=== PATIENT | male | born 1950 | race Caucasian/White ===

== ENCOUNTER 2025-09-25 08:29 | Inpatient (IN) | payer MEDICARE, BC, SELFPAY ==
[2025-09-25] VITALS (8 sets, daily range): BP systolic 108–138; BP diastolic 43–68; PULSE 74–104; RESP 16–97; TEMP 37.2–39.2; O2SAT 93–99; BMI 23.7
--- NOTE | 2025-09-25 08:50 | EKG_ITS ---
[facility] Test Date: 2025-09-25 Pat Name: NATASHA GONZALES Department: Room: - Gender: Male Supplier Diversity Director: : 1950 Requested By: Caleb Quinonez Order Number: [id number] Reading MD: Caleb Quinonez Measurements Intervals [place] Rate: 79 P: 60 NV: 157 QRS: 52 QRSD: 92 T: 72 QT: 376 QTc: 431 Interpretive Statements SINUS RHYTHM NONSPECIFIC T-WAVE ABNORMALITY No previous ECG available for comparison /store/S0/[id number].pdf
--- NOTE | 2025-09-25 08:52 | PD.EDMALE ---
ED Male Genitalurinary RME/HPI General Chief complaint: Urogenital-Male Stated complaint: BLOOD IN URINE Time Seen by Provider: 09/25/25 08:44 Arrival date/time: 09/25/25 08:29 Limitations: no limitations RME / HPI RME / HPI Narrative: DR. REYMUNDO GONSALES ED EVALUATION: 75-year-old male with history of hypercholesterolemia, insulin-dependent diabetes, hypertension, CAD and BPH who presents to the emergency department complaining of 2 days of nausea, vomiting, diarrhea as well as chills and shakes at home. Patient states he had left flank pain 2 days ago but that resolved. Patient states that he became so weak at home that when he used the commode last he could not hold himself up and fell to the side. No injuries. Patient also states that he fell out of bed at 1 point and was unable to stand up. No chest pain but patient states that he has had a off/on cough that is nonproductive. Patient states his told him that he had blood in his urine but he did not see it. Patient arrives febrile. Related Data Home Medications ?Medication ?Instructions ?Recorded ?Confirmed aspirin 81 mg tablet,delayed 81 mg PO QDAY 04/30/23 09/25/25 release (Adult Aspirin Regimen) atorvastatin 20 mg tablet 20 mg PO QDAY 04/30/23 09/25/25 finasteride 5 mg tablet 5 mg PO QDAY 04/30/23 09/25/25 insulin glargine 100 unit/mL (3 20 unit subcut BID 04/30/23 09/25/25 mL) subcutaneous pen (Lantus Solostar U-100 Insulin) lisinopril 2.5 mg tablet 10 mg PO QDAY 04/30/23 09/25/25 metformin 1,000 mg tablet 1,000 mg PO BID 04/30/23 09/25/25 nitroglycerin 0.4 mg sublingual 0.4 mg sublingual Q5M PRN chest 04/30/23 09/25/25 tablet pain tamsulosin 0.4 mg capsule 0.4 mg PO QDAY 04/30/23 09/25/25 carvedilol 12.5 mg tablet 12.5 mg PO BID 09/25/25 09/25/25 insulin lispro 100 unit/mL 3 unit subcut TID 09/25/25 09/25/25 subcutaneous pen (Humalog KwikPen (U-100) Insulin) pregabalin 50 mg capsule (Lyrica) 50 mg PO TID 09/25/25 09/25/25 Allergies Allergy/AdvReac Type Severity Reaction Status Date / Time codeine Allergy Verified 09/25/25 08:37 Review of Systems Review of Systems Systems Reviewed: All systems reviewed, normal except as documented ED Exam General Limitations: Present no limitations General appearance: Present alert, in no apparent distress and other (appears fatigued) Head Head exam: Present atraumatic, normocephalic and normal inspection Eye Eye exam: Present normal appearance, PERRL and EOMI ENT ENT exam: Present normal exam, normal oropharynx and mucous membranes moist Neck Neck exam: Present normal inspection, full ROM and trachea midline Chest Chest inspection: Present normal inspection and symmetric chest wall rise Respiratory Respiratory exam: Present normal lung sounds bilaterally Cardiovascular Cardiovascular exam: Present regular rate, normal rhythm and normal heart sounds Abdominal Exam Abdominal exam: Present soft and normal bowel sounds; Absent tenderness, guarding or rebound Extremities Exam Extremities exam: Present normal inspection and full ROM Back Exam Back exam: Present normal inspection and full ROM; Absent CVA tenderness (R) or CVA tenderness (L) Neurological Exam Neurological exam: Present alert, oriented X3 and CN II-XII intact Psychiatric Psychiatric exam: Present normal affect and normal mood Skin Skin exam: Present dry, intact, normal color and other (hot to touch) Course Quality Measures none Orders Category Date Time Status Bedside COVID-19 Antigen Test NOW Care 09/25/25 08:53 Active Bedside Influenza A&B Antigen Test NOW Care 09/25/25 08:53 Completed Hospice Executive Director STAT Care 09/25/25 08:50 Active Continuous Pulse Oximetry STAT Care 09/25/25 08:50 Completed EKG (ED ONLY) *Do not use* NOW Care 09/25/25 08:50 Completed Insert IV NOW Care 09/25/25 08:50 Active NPO STAT Care 09/25/25 08:50 Active Strict Intake and Output Routine Care 09/25/25 08:[address] abdomen pelvis wo con Stat Exams 09/25/25 09:09 Completed EKG (ED Only) Stat Exams 09/25/25 08:50 Draft XR chest 1V SEPSIS PROTOCOL Stat Exams 09/25/25 08:51 Completed B-Type Natriuretic Peptide Stat Lab 09/25/25 08:55 Completed Blood Culture (Lab) Stat Lab 09/25/25 09:06 Received CBC Stat Lab 09/25/25 08:55 Completed Comprehensive Metabolic Panel Stat Lab 09/25/25 08:55 Completed Free T4 (Free Thyroxine) Stat Lab 09/25/25 11:12 Ordered Ketone [Beta Hydroxybutyrate] Stat Lab 09/25/25 09:39 Completed LDH (Lactate Dehydrogenase) Stat Lab 09/25/25 08:55 Completed Lactate (Lactic Acid) Stat Lab 09/25/25 08:55 Results Lipase Stat Lab 09/25/25 08:55 Completed Magnesium Stat Lab 09/25/25 08:55 Completed Partial Thromboplastin Time Stat Lab 09/25/25 08:55 Completed Phosphorous Stat Lab 09/25/25 08:55 Completed Procalcitonin Stat Lab 09/25/25 08:55 Completed Prothrombin Time with INR Stat Lab 09/25/25 08:55 Completed TSH [Thyroid Stimulating Hormone] Stat Lab 09/25/25 11:12 Ordered Troponin I Stat Lab 09/25/25 08:55 Completed Urinalysis, C/S if Indicated Stat Lab 09/25/25 09:00 Completed Urine Culture Stat Lab 09/25/25 09:00 Received VBG [Venous Blood Gas] Stat Lab 09/25/25 09:06 Completed Acetaminophen Ivpb [Ofirmev Inj] Med 09/25/25 08:52 Discontinued 1,000 mg in 100 ml IV NOW Doxycycline Inj [Vibramycin Inj] 100 mg Med 09/25/25 08:52 Discontinued Sodium Chloride 0.9% (Pop) [NS 0.9% mini bag] 100 ml IV X1 Insulin Regular Med 09/25/25 11:12 Discontinued 6 unit IV X1 ONE Magnesium Sulfate 2 GM Ivpb [Magnesium Sulfate Ivpb] Med 09/25/25 11:11 Active 2 gm in 50 ml IV X1 Piper/Tazo 3.375 gm Premix [Zosyn] Med 09/25/25 08:50 Discontinued 3.375 gm in 50 ml IV X1 Sodium Chloride 0.9% 1000 ml [Ns] 2,466 ml Med 09/25/25 08:50 Discontinued IV 2,466 mls/hr Oxygen Delivery NOW RT 09/25/25 08:50 Active Vital Signs Vital signs: Vital Signs Temperature 102.5 F H 09/25/25 08:35 Pulse Rate 90 09/25/25 08:35 Respiratory Rate 18 09/25/25 08:35 Blood Pressure 138/68 H 09/25/25 08:35 Pulse Oximetry (%) 97 09/25/25 08:35 Oxygen Delivery Method Room Air 09/25/25 08:35 Urogenital - Male MDM Narrative MDM Narrative:: I, Macy Mcpherson, am scribing for and in the presence of Dr. Isabel. 75-year-old male presenting with fever, gastrointestinal symptoms, weakness, and reported hematuria. Given febrile state and systemic symptoms, workup initiated to evaluate for sepsis, with concern for urinary source, pyelonephritis, pneumonia, viral illness, or other infectious etiology. Plan is to rule out pyelo-/renal colic/pneumonia/UTI/sepsis of unknown source/influenza/COVID/other. EKG at 9:40 AM normal sinus rhythm at 79 with normal axis, no ectopy no signs of acute ischemia. Patient data External records reviewed:: [facility] previous records Clinical information provided by:: patient and spouse Social determinants that could affect healthcare access:: none Patient has the following chronic illnesses:: hypercholesterolemia, insulin-dependent diabetes, hypertension, CAD and BPH How is presenting disease/condition affected by chronic disease/condition?: exacerbated by Evaluation data The following diagnostics were reviewed and interpreted by me:: lab results, radiology exam(s) and EKG tracing(s) (EKG at 9:40 AM normal sinus rhythm at 79 with normal axis, no ectopy no signs of acute ischemia.) Lab and/or radiology exams considered but not ordered:: none Interpretation Summary: See [facility] narrative above. RADIOLOGY Procedure(s): CT abdomen pelvis wo [facility] Accession Number(s): [id number] cc: Tim Dee MD; Caleb Isabel MD~ Examination: CT abdomen and pelvis without contrast. Coronal 3-D reconstructions. Sagittal 2-D reconstructions. Date and time of exam: September 25, 2025, 09 hours INDICATIONS: Onset nausea vomiting hematuria beginning last night CTDI: vol (mGy): 8.03 DLP: (mGycm): 495 Technique: Axial images of the abdomen have been obtained, 3 mm slice thickness Intravenous contrast material has not been administered. Low dose protocols were performed. One or more of the following dose reduction techniques were used; automated exposure control, adjustment of the mA and/or KV according to patient size, use of iterative reconstruction technique. Findings: No visualized liver or splenic lesion Small gallstones Gallbladder wall does not appear thickened Pancreas is not enlarged No adrenal mass. Left perinephric stranding mild left hydronephrosis and left hydroureter, no ureteral calculi Aortic calcification Heavy calcification origin left renal artery Normal appendix No bowel obstruction 4 cm posterior right bladder diverticulum No bladder mass or bladder calculi Transverse prostate dimension 5 cm Significant osteopenia Mild chronic osteoporotic compression L1 IMPRESSION: Left perinephric stranding mild left hydronephrosis left hydroureter, no ureteral calculi, consider left pyelonephritis versus recently passed ureteral calculus, clinical correlation advised Normal appendix Benign bladder diverticulum Dictated By: Tim Dee MD Procedure(s): XR chest 1V SEPSIS PROTOCOL Accession Number(s): [id number] cc: Tim Dee MD; Caleb Isabel MD~ EXAMINATION: AP chest single view TECHNIQUE: AP portable upright chest single view Date and time: September 25, 2025, 0949 hours INDICATIONS: Sepsis alert today. FINDINGS: No significant cardiac enlargement No lobar pneumonia Prominent osteopenia Trachea is deviated to the right which may relate to large left thyroid lobe IMPRESSION: No lobar pneumonia Consider thyroid sonography follow-up to confirm marked left thyromegaly Dictated By: Tim Dee MD Medications / Prescriptions Medications or Prescriptions considered but not ordered:: none Medication administrations:: Medication Administration History Magnesium Sulfate (Magnesium Sulfate Ivpb) 2 gm in 50 mls @ 25 mls/hr IV X1 ONE Stop: 09/25/25 13:10 Last Admin: 09/25/25 11:26 Dose: 25 mls/hr Documented By: MARKUS Discontinued Medications Sodium Chloride (Ns) 2,466 mls @ 2,466 mls/hr 30 ml/kg infuse over 60 min (2466 ml) IV .Q1H ONE Stop: 09/25/25 09:49 Last Admin: 09/25/25 09:09 Dose: 2,466 mls/hr Documented By: RAGHAVENDRA Piperacillin/Tazobactam/Dextrose (Zosyn) 3.375 gm in 50 mls @ 100 mls/hr IV X1 ONE Stop: 09/25/25 09:19 Last Admin: 09/25/25 09:11 Dose: 100 mls/hr Documented By: RAGHAVENDRA Acetaminophen (Ofirmev Inj) 1,000 mg in 100 mls @ 250 mls/hr IV NOW ONE Stop: 09/25/25 09:15 Last Infusion: 09/25/25 09:38 Dose: Infused Documented By: Admin: 09/25/25 09:08 Dose: 250 mls/hr Documented By: RAGHAVENDRA Doxycycline Hyclate 100 mg/ (Sodium Chloride) 100 mls @ 100 mls/hr IV X1 ONE Stop: 09/25/25 09:51 Last Admin: 09/25/25 09:48 Dose: 100 mls/hr Documented By: MARKUS Insulin Human Regular (Insulin Hum Regular 1 Unit/0.01 Ml (Per Unit)) 6 unit IV X1 ONE Stop: 09/25/25 11:13 Last Admin: 09/25/25 11:26 Dose: 6 unit Documented By: MARKUS Co-signed By: MEETA see above Consultations Consultation(s) initiated? (list below): Yes Consultation #1 (Physician, Specialty, Details): Discussed test HPI, PMHx, lab, radiology results and/or management with resident working with the hospitalist. Will admit for further evaluation and management. Accepts patient for admission. Time: 11:39 Diagnosis Urogenital Male Differential Diagnosis: other (urinary source, pyelonephritis, pneumonia, viral illness, or other infectious etiology) Most likely diagnosis given after review of the tests above:: Severe sepsis UTI Pyelonephritis TIMMY Hypomagnesemia Admission Indicated Admission indicated?: indicated Admission Request Was there a request for admission?: Yes Admission Attestation Admission request attestation: Discussed case with [] from Hospitalist service regarding admission. Discussed patients ED course, exam findings, labs, and radiology results. The Hospitalist [agrees,declines] to accept the patient for admission. Disposition Plan Disposition Plan: Admit Critical Care Time Critical Care Time Critical Care Time: Yes Total Critical Care Time (min.): 45 Attestation: The high probability of sudden, clinically significant deterioration in the patient?s condition required the highest level of my preparedness to intervene urgently. The services I provided to this patient were to treat and/or prevent clinically significant deterioration. Services included the following: chart data review, reviewing nursing notes and/or old charts, documentation time, school plant consultant collaboration regarding findings and treatment options, medication orders and management, direct patient care, vital sign assessments and ordering, interpreting and reviewing diagnostic studies and lab tests. Aggregate critical care time includes only time during which I was engaged in work directly related to the patient?s care, as described above, whether at bedside or elsewhere in the Emergency Department. It did not include time spent performing other reported procedures or the services of residents, students, nurses or physician assistants. Discharge Plan Plan Patient Disposition: Admit Acute Care w/in Hospital Prescriptions/Referrals Prescriptions/Med Rec: No Action metformin 1,000 mg tablet 1,000 mg PO BID tamsulosin 0.4 mg capsule 0.4 mg PO QDAY finasteride 5 mg tablet 5 mg PO QDAY lisinopril 2.5 mg tablet 10 mg PO QDAY atorvastatin 20 mg tablet 20 mg PO QDAY aspirin [Adult Aspirin Regimen] 81 mg tablet,delayed release (DR/EC) 81 mg PO QDAY nitroglycerin 0.4 mg tablet, sublingual 0.4 mg sublingual Q5M PRN (Reason: chest pain) Rx Instructions: do not exceed 3 doses per episode insulin glargine [Lantus Solostar U-100 Insulin] 100 unit/mL (3 mL) insulin pen 20 unit subcut BID insulin lispro [Humalog KwikPen Insulin] 100 unit/mL insulin pen 3 unit subcut TID pregabalin [Lyrica] 50 mg capsule 50 mg PO TID carvedilol 12.5 mg tablet 12.5 mg PO BID Rx Instructions: must administer with a meal/food Referrals: No Primary/Family,Physician [Primary Care Provider] - In 1 week Problem List Clinical Impression: Severe sepsis, Urinary tract infection, Pyelonephritis, TIMMY (acute kidney injury), Hypomagnesemia Patient/Caregiver Discharge Instructions Print Language: Tajik Stand Alone Forms: [facility] Award Info., Patient Portal Info Letter
[2025-09-25] MEDS: ACETAMINOPHEN IVPB 1,000 MG/100 ML VIAL 250 MG IV (09:08)
[2025-09-25] MEDS: SODIUM CHLORIDE 0.9% 1000 ML 2,466 ML 2466 ML IV (09:09)
--- NOTE | 2025-09-25 09:09 | XR_ITS ---
Examination: CT abdomen and pelvis without contrast. Coronal 3-D reconstructions. Sagittal 2-D reconstructions. Date and time of exam: September 25, 2025, 0929 hours INDICATIONS: Onset nausea vomiting hematuria beginning last night CTDI: vol (mGy): 8.03 DLP: (mGycm): 495 Technique: Axial images of the abdomen have been obtained, 3 mm slice thickness Intravenous contrast material has not been administered. Low dose protocols were performed. One or more of the following dose reduction techniques were used; automated exposure control, adjustment of the mA and/or KV according to patient size, use of iterative reconstruction technique. Findings: No visualized liver or splenic lesion Small gallstones Gallbladder wall does not appear thickened Pancreas is not enlarged No adrenal mass. Left perinephric stranding mild left hydronephrosis and left hydroureter, no ureteral calculi Aortic calcification Heavy calcification origin left renal artery Normal appendix No bowel obstruction 4 cm posterior right bladder diverticulum No bladder mass or bladder calculi Transverse prostate dimension 5 cm Significant osteopenia Mild chronic osteoporotic compression L1 IMPRESSION: Left perinephric stranding mild left hydronephrosis left hydroureter, no ureteral calculi, consider left pyelonephritis versus recently passed ureteral calculus, clinical correlation advised Normal appendix Benign bladder diverticulum
[2025-09-25 09:10] LABS: Lactate (Lactic Acid) 3.3 mMol/L (0.4-2.0)
[2025-09-25] MEDS: PIPER/TAZO 3.375 GM PREMIX 3.375 GM/50 ML BAG IV (09:11)
[2025-09-25 09:13] LABS: Collection Type, Urine Clean Catch
[2025-09-25 09:28] LABS: Basophils # (Auto) 0.0 Thou/mm3 (0.0-0.2); Basophils % (Auto) 0 % (0-2.5); Eosinophils # (Auto) 0.0 Thou/mm3 (0.0-0.5); Eosinophils % (Auto) 0 % (0-10); Hematocrit 37.4 % (41.0-53.0); Hemoglobin 12.6 g/dL (13.5-16.0); Immature Granulocytes Auto 0.15 Thou/mm3 (0.00-0.00); Lymphocytes # (Auto) 0.3 Thou/mm3 (1.0-4.8); Lymphocytes % (Auto) 2 % (10-50); Mean Corpuscular HGB Conc 33.7 g/dl (31.0-37.0); Mean Corpuscular Hemoglobin 29.1 pg (25.0-35.0); Mean Corpuscular Volume 86 fL (80-100); Monocytes # (Auto) 1.0 Thou/mm3 (0.0-0.8); Monocytes % (Auto) 6 % (0-12); Neutrophils # (Auto) 15.7 Thou/mm3 (1.8-7.7); Neutrophils % (Auto) 91 % (37-80); Nucleated Red Blood Cell # 0.00 Thou/mm3 (0.00-0.00); Nucleated Red Blood Cell % 0 /100 WBC (0); Platelet Count 229 Thou/mm3 (140-440); RDW Standard Deviation 41.0 fL (35.1-43.9); Red Blood Count 4.33 Miln/mm3 (4.50-5.90); White Blood Count 17.3 Thou/mm3 (3.8-10.6)
[2025-09-25 09:30] LABS: Bacteria,Urine 4+; Bilirubin,Urine Negative (Negative); Blood,Urine 2+ (Negative); Clarity,Urine Hazy (Clear/Hazy); Color,Urine Yellow (Lt Yel-Yel); Culture Indicated,Urine Yes; Glucose, Urine 4+ (Negative); Ketones,Urine 1+ (Negative); Leukocyte Esterase,Urine Positive (Negative); Nitrite,Urine Positive (Negative); PH,Urine 5.5 (5.0-7.0); Protein,Urine 1+ (Neg - Trace); RBC,Urine 19 /hpf (0-3); Specific Gravity,Urine 1.018 (1.001-1.035); Squamous Epithelial Cell,Urine 1 /hpf (0-5); Urobilinogen,Urine Negative mg/dL (0.0-1.0); WBC,Urine 143 /hpf (0-5)
[2025-09-25 09:31] LABS: INR 1.2 (0.9-1.3); Partial Thromboplastin Time 25.6 Seconds (22.0-36.0); Prothrombin Time 12.4 Seconds (9.0-12.2)
[2025-09-25 09:39] LABS: Base Excess, Venous 1 (-3-3); O2 Saturation, Venous 58 % (96-97); PCO2, Venous 36 mmHg (36-56); PO2, Venous 30 mmHg (15-58); pH, Venous 7.44 (7.33-7.66)
[2025-09-25] MEDS: DOXYCYCLINE INJ 100 MG in SODIUM CHLORIDE 0.9% (POP) 100 ML IV (09:48)
[2025-09-25 09:53] LABS: B-Type Natriuretic Peptide 294 pg/mL (0-100)
[2025-09-25 09:53] LABS: Beta Hydroxybutyrate 0.8 mmol/L (<0.6)
[2025-09-25 10:03] LABS: Alanine Aminotransferase 15 U/L (10-49); Albumin, Serum 4.2 gm/dL (3.4-4.8); Albumin/Globulin Ratio 1.9 (1.2-2.2); Alkaline Phosphatase 55 U/L (46-116); Anion Gap 14 (7-16); Aspartate Amino Transferase 15 U/L (0-34); BUN/Creatinine Ratio 13 Ratio (12-20); Bilirubin,Total 1.0 mg/dL (0.3-1.2); Blood Urea Nitrogen 22 mg/dL (9-23); Calcium 9.7 mg/dL (8.3-10.6); Calcium (Corrected) 9.7 mg/dL (8.5-10.1); Carbon Dioxide 22.1 mMol/L (20.0-31.0); Chloride 99 mMol/L (98-107); Creatinine (Component) 1.7 mg/dL (0.6-1.3); Estimated Creatinine Clearance 43.0 mL/min (>60); Globulin 2.2 gm/dL (2.3-3.5); LDH (Lactate Dehydrogenase) 172 U/L (120-246); Lipase 26 U/L (12-53); Osmolality,Calculated 291 (275-295); Phosphorous 2.5 mg/dL (2.4-5.1); Potassium 4.1 mMol/L (3.4-5.1); Procalcitonin 13.55 ng/ml (0.0-0.49); Sodium 135 mMol/L (136-145); Total Protein 6.4 gm/dL (5.7-8.2); Troponin I < 0.020 ng/mL (0.0-0.045); eGFR 41 See Note
[2025-09-25 10:05] LABS: Glucose 424 mg/dL (74-106)
[2025-09-25 11:07] LABS: Magnesium 0.9 mg/dL (1.6-2.6)
[2025-09-25] MEDS: INSULIN HUM REGULAR 1 UNIT/0.01 ML (PER UNIT) 6 UNIT IV (11:26)
[2025-09-25] MEDS: Magnesium Sulfate 2 GM Ivpb 2 GM/50 ML BAG IV (11:26)
[2025-09-25 12:09] LABS: Reflex Lactate? Y
[2025-09-25 12:40] LABS: Free T4 (Free Thyroxine) 1.17 ng/dL (0.89-1.76); Thyroid Stimulating Hormone 1.21 uIU/mL (0.55-4.78)
[2025-09-25 12:46] LABS: Lactic Acid, 3 HR 2.6 mMol/L (0.4-2.0)
[2025-09-25] MEDS: cefTRIAXone 2 GM in SODIUM CHLORIDE 0.9% (Popper) 50 ML IV ×2 (12:56→16:42)
[2025-09-25] MEDS: INSULIN DEGLUDEC 5 UNIT/0.05 ML (PER 5 UNITS) 10 UNIT SC ×2 (12:56→20:10)
[2025-09-25] MEDS: SODIUM CHLORIDE 0.9% 1000 ML 1,000 ML 75 ML IV (12:57)
[2025-09-25] MEDS: Magnesium Sulfate 4 GM Ivpb 4 GM/50 ML BAG IV (13:00)
--- NOTE | 2025-09-25 13:25 | PD.RESHP ---
Documentation for date of: 09/25/25 HPI History of Present Illness Chief complaint: pyelonephritis History of present illness: Justin Corado 75M pmhx significant for HTN, IDDM2, and CAD s/p PCIx2 (2022) who presents with 1 day of nausea, vomiting and diarrhea. Patient endorses 2 days ago had left flank pain however resolved on its own. Dysuria, inconsistent stream, fever, nausea, nonbilious nonbloody vomiting x2 and few episodes of diarrhea started yesterday afternoon at 1 PM associated with profound weakness. Patient endorses that after using the commode, slumped over and felt extremely weak, experienced head strike of upper right forehead after slumping over but no loss of consciousness, prompting current ED visit. Previously had frequent UTI in the past treated with cipro however not any for the past couple years. Denies recent illness, history of nephrolithiasis, recent travel, chest pain, abdominal pain or flank pain. 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 Javed in [place] FHx: Denies familial cardiac or cancer history Social Hx: Denies tobacco, alcohol, recreational/illicit drug use. Lives in [place] with . Independent with all ADLs walks without assistance. Allergies: Codeine headache Medications: Per med rec, uses 14 units Lantus in a.m. and 13 units Lantus in p.m. In ED, BP 138/68, HR 90, RR 18, temp 102.5 ?F, saturating 97% room air. Significant labs include WBC 17.3, hemoglobin 12.6, PT mildly elevated 12.4, VBG 7.44, sodium 135, creatinine 1.7 with eGFR 41, glucose 424, lactic acid 3.3->2.6, magnesium 0.9, BNP 294, BHB 0.8, procal 13.55. UA dirty. In ED, given Tylenol 1 g, sepsis bolus 2.5 L NS, Zosyn x 1, doxycycline x 1, magnesium 2 g, insulin regular 6 units. Chest x-ray shows no lobar pneumonia, trache deviated to R which may relate to large L thyroid lobe. CTAP: Left perinephric stranding, mild left hydronephrosis, left hydro ureter, no ureteral calculi, normal appendix, benign bladder diverticulum. Patient was admitted for L pyelonephritis. Review of Systems Review of Systems Systems Reviewed: All systems reviewed, normal except as documented Exam Vital Signs Temp Pulse Resp BP Pulse Ox O2 Del Method 99.0 F 84 22 H 129/65 99 Room Air 09/25/25 10:17 09/25/25 10:17 09/25/25 10:17 09/25/25 10:17 09/25/25 10:17 09/25/25 08:35 Narrative Exam GENERAL: AOx3, no acute distress HEENT: mucous membranes moist, bilateral sclera anicteric CARDIOVASCULAR: regular rate and rhythm, S1/S2 present, no murmurs appreciated PULMONARY: clear to auscultation bilaterally, no rales/rhonchi/wheezes ABDOMINAL: soft, non-tender, non-distended, no rebound/guarding, bowel sounds present, no CVA tenderness, no suprapubic tenderness EXTREMITIES: no peripheral edema SKIN: warm and dry, intact, no rashes NEURO: CN II-XII grossly intact, no focal deficits, alert, following commands Results: Labs 09/26/25 05:17 09/26/25 05:17 Labs: Short CBC 09/25/25 Range/Units 08:55 WBC 17.3 H (3.8-10.6) Thou/mm3 Hgb 12.6 L (13.5-16.0) g/dL Hct 37.4 L (41.0-53.0) % Plt Count 229 (140-440) Thou/mm3 BMP 09/25/25 08:55 Sodium 135 L Potassium 4.1 Chloride 99 Carbon Dioxide 22.1 BUN 22 Creatinine 1.7 H Glucose 424 H* Calcium 9.7 Cardiac Enzymes 09/25/25 Range/Units 08:55 Troponin I < 0.020 (0.0-0.045) ng/mL Liver Function 09/25/25 Range/Units 08:55 Total Bilirubin 1.0 (0.3-1.2) mg/dL AST 15 (0-34) U/L ALT 15 (10-49) U/L Alkaline Phosphatase 55 (46-116) U/L Albumin 4.2 (3.4-4.8) gm/dL Urine 09/25/25 Range/Units 09:00 Urine Color Yellow (Lt Yel-Yel) Urine Clarity Hazy (Clear/Hazy) Urine pH 5.5 (5.0-7.0) Ur Specific [place] 1.018 (1.001-1.035) Urine Protein 1+ A (Neg - Trace) Urine Glucose (UA) 4+ A (Negative) ABG Interpretation ABG results: 09/25/25 09:06 VBG pH 7.44 VBG pCO2 36 VBG pO2 30 VBG Base Excess 1 Quality Measures Quality Measures none Advance care planning discussed with:: patient Medications Home Medications and Allergies Home Medications ?Medication ?Instructions ?Recorded ?Confirmed ?Type aspirin 81 mg tablet,delayed 81 mg PO QDAY 04/30/23 09/25/25 History release (Adult Aspirin Regimen) atorvastatin 20 mg tablet 20 mg PO QDAY 04/30/23 09/25/25 History finasteride 5 mg tablet 5 mg PO QDAY 04/30/23 09/25/25 History insulin glargine 100 unit/mL (3 20 unit subcut BID 04/30/23 09/25/25 History mL) subcutaneous pen (Lantus Solostar U-100 Insulin) lisinopril 2.5 mg tablet 10 mg PO QDAY 04/30/23 09/25/25 History metformin 1,000 mg tablet 1,000 mg PO BID 04/30/23 09/25/25 History nitroglycerin 0.4 mg sublingual 0.4 mg sublingual Q5M PRN chest 04/30/23 09/25/25 History tablet pain tamsulosin 0.4 mg capsule 0.4 mg PO QDAY 04/30/23 09/25/25 History carvedilol 12.5 mg tablet 12.5 mg PO BID 09/25/25 09/25/25 History insulin lispro 100 unit/mL 3 unit subcut TID 09/25/25 09/25/25 History subcutaneous pen (Humalog KwikPen (U-100) Insulin) pregabalin 50 mg capsule (Lyrica) 50 mg PO TID 09/25/25 09/25/25 History Allergies Allergy/AdvReac Type Severity Reaction Status Date / Time codeine Allergy Verified 09/25/25 08:37 Visit Medications Acetaminophen (Acetaminophen 325 Mg Tablet) 650 mg PO Q6H PRN PRN Reason: Fever >100.4 or pain 1-3 Stop: 10/25/25 11:49 Aspirin (Aspirin Ec 81 Mg Tabec) 81 mg PO QDAY [facility] Stop: 10/26/25 08:59 Atorvastatin Calcium (Atorvastatin Calcium 20 Mg Tablet) 20 mg PO QDAY [facility] Stop: 10/26/25 08:59 Carvedilol (Carvedilol 12.5 Mg Tablet) 12.5 mg PO BID [facility] Stop: 10/25/25 20:59 Dextrose (Dextrose 50%-Water Inj 50 Ml Syringe) 25 ml IV Q15MIN PRN PRN Reason: BG 50-70 responsive npo pt Stop: 10/25/25 12:04 Dextrose (Dextrose 50%-Water Inj 50 Ml Syringe) 50 ml IV Q15MIN PRN PRN Reason: BG <50 OR BG <70 & pt unresponsive Stop: 10/25/25 12:04 Finasteride (Finasteride 5 Mg Tablet) 5 mg PO QDAY [facility] Stop: 10/26/25 08:59 Glucagon (Glucagon Inj 1 Mg Vial) 1 mg IM Q15MIN PRN PRN Reason: BG <70, and no IV access Heparin Sodium (Porcine) (Heparin Sod Inj 5000 Unit/Ml Vial) 5,000 unit SC Q8HR [facility] Stop: 10/09/25 13:59 Sodium Chloride (Ns) 1,000 mls @ 75 mls/hr IV .[id number] [facility] Stop: 09/26/25 01:19 Last Admin: 09/25/25 12:57 Dose: 75 mls/hr Magnesium Sulfate (Magnesium Sulfate Ivpb) 4 gm in 50 mls @ 12.5 mls/hr IV X1 ONE Stop: 09/25/25 17:29 Last Admin: 09/25/25 13:00 Dose: 12.5 mls/hr Ceftriaxone Sodium 2 gm/ (Sodium Chloride) 50 mls @ 100 mls/hr IV QDAY [facility] Stop: 10/02/25 12:28 Last Admin: 09/25/25 12:56 Dose: 100 mls/hr Insulin Degludec (Insulin Degludec 5 Unit/0.05 Ml (Per 5 Units)) 10 unit SC BID [facility] Stop: 10/25/25 12:14 Last Admin: 09/25/25 12:56 Dose: 10 unit Insulin Human Lispro (Insulin Lispro (Admelog) 1 Unit/0.01 Ml Unit) 0 unit SC AC [facility]; Protocol Stop: 10/25/25 16:59 Ondansetron HCl (Ondansetron Inj 2 Mg/Ml Inj 2 Ml) 4 mg IVP Q6H PRN; Protocol PRN Reason: NAUSEA OR VOMITING Stop: 10/25/25 11:49 Pregabalin (Pregabalin 50 Mg Capsule) 50 mg PO TID [facility] Stop: 10/25/25 13:59 Sennosides (Senna Tablet) 1 tab PO QDAY PRN; Protocol PRN Reason: constipation Stop: 10/25/25 11:49 Tamsulosin HCl (Tamsulosin Hcl 0.4 Mg Capsule) 0.4 mg PO QDAY [facility] Stop: 10/26/25 08:59 Discontinued Medications Sodium Chloride (Ns) 2,466 mls @ 2,466 mls/hr 30 ml/kg infuse over 60 min (2466 ml) IV .Q1H ONE Stop: 09/25/25 09:49 Last Admin: 09/25/25 09:09 Dose: 2,466 mls/hr Piperacillin/Tazobactam/Dextrose (Zosyn) 3.375 gm in 50 mls @ 100 mls/hr IV X1 ONE Stop: 09/25/25 09:19 Last Admin: 09/25/25 09:11 Dose: 100 mls/hr Acetaminophen (Ofirmev Inj) 1,000 mg in 100 mls @ 250 mls/hr IV NOW ONE Stop: 09/25/25 09:15 Last Infusion: 09/25/25 09:38 Dose: Infused Doxycycline Hyclate 100 mg/ (Sodium Chloride) 100 mls @ 100 mls/hr IV X1 ONE Stop: 09/25/25 09:51 Last Admin: 09/25/25 09:48 Dose: 100 mls/hr Magnesium Sulfate (Magnesium Sulfate Ivpb) 2 gm in 50 mls @ 25 mls/hr IV X1 ONE Stop: 09/25/25 13:10 Last Admin: 09/25/25 11:26 Dose: 25 mls/hr Ceftriaxone Sodium/Dextrose (Rocephin/D5w 1gm Iv Premix) 1 gm in 50 mls @ 100 mls/hr IV QDAY [facility] Stop: 10/02/25 12:04 Insulin Human Regular (Insulin Hum Regular 1 Unit/0.01 Ml (Per Unit)) 6 unit IV X1 ONE Stop: 09/25/25 11:13 Last Admin: 09/25/25 11:26 Dose: 6 unit Assessment & Plan Plan Justin Corado 75M pmhx significant for HTN, IDDM2, and CAD s/p PCIx2 (2022) who presents with 1 day of dysuria, nausea, vomiting and diarrhea, admitted for L pyelonephritis. #Pyelonephritis #Hx of BPH #Elevated lactic acid Admits to flank pain 2 days ago resolved on its own, unaware if he passed stone. No history of nephrolithiasis. Previously had frequent UTI in the past treated with cipro however not any for the past couple years. On admission WBC 17.3, procal 13.5, febrile, lactic acid 3.3->2.6 following sepsis bolus. UA hazy, 1+ protein, 4+ glucose, 1+ ketones, 2+ blood, positive nitrite and leukocyte esterase, 19 RBC, 143 WBC, 4+ bacteria. s/p Zosyn and doxycycline in ED. CTAP: Left perinephric stranding, mild left hydronephrosis, left hydro ureter, no ureteral calculi, normal appendix, benign bladder diverticulum Plan: - Ceftriaxone 2g QD (09/25- - Restarted home finasteride 5 mg QD and tamsulosin 0.4 mg QD - NS 75 cc/hr for 1L #Hyperglycemia #IDDM2 Takes Lantus 14 in AM and 13 in PM. Has not taken for one day due to N/V. Glucose on admission 484 and BHB 0.8, VBG 7.44, so not DKA. Plan: - Degludac 10u BID and SSI step 3 #Normocytic anemia Hgb on admission 12.6, no hx of anemia or recent bleed. Denies melena, hematochezia or hematemesis. Plan: - F/u iron panel, B12, folate, ferritin, peripheral smear #TIMMY Cr on admission 1.7 with GFR 47, denies kidney disease and unknown baseline. Plan: - NS at 75 cc/hr for 1L - F/u renal US - Consider Ulytes if TIMMY does not improve #CAD s/p PCIx2 (2022) #Hx of HTN, essential Takes ASA 81 mg QD, atorvastatin 20 mg hs, carvedilol 12.5 mg BID, lisinopril 10 mg daily, Plan: - Resumed home ASA 81 mg QD, atorvastatin 20 mg hs, carvedilol 12.5 mg BID - Consider restarting home lisinopril 10 mg QD if blood pressure remains elevated #Hypomagnesemia Ddx: N/V, poor PO intake Plan: - Repleted with 2g in ED and another 4 after - F/u AM Mg Hospital management: Lines: PIV Diet: carb consistent low Bowel: senna prn GI prophylaxis: not indicated DVT prophylaxis: heparin 5000u q8 Disposition: med tele, IV abx CODE STATUS: FULL CODE Plan of care discussed with attending Dr. Daniels, and PGY-3 Dr. Knowles. Theresa Espinosa, DO PGY-1 Internal Medicine Senior Resident Attestation: The patient is a 75-year-old male with significant past medical history of hypertension, [place] dependent diabetes mellitus type 2, CAD s/p PCI times 10/2022 who presented with chief complaint of nausea, vomiting and diarrhea revealed that associated left flank pain about 2 days ago. He also reported dysuria, inconsistently stream, fever, nausea, and generalized weakness. While he was using commode, he slumped over and felt extremely weak, but did not lose consciousness even though he hit his right forehead mildly to floor. In the ED his temperature were 102.5 ?F, white count 17.3, creatinine 1.7, lactic acid 3.3, blood sugar 424, Pro-Vikash 13.55, and received 30 cc/kg bolus IV fluid, Zosyn, doxycycline and 6 units regularly insulin in the ED. Chest x-ray was negative for pneumonia. CTAP revealed left perinephric stranding, mild left hydronephrosis, left hydroureter, no ureteral calculi or bladder diverticulum. The patient was started on ceftriaxone 2 g daily, urine culture sent, blood culture sent, and started on normal/maintenance fluid 75 cc/h, started on degludec 10 unit twice daily along with SSI step 3, ordered iron panel, will add, ferritin, vitamin B12 and peripheral smear for normocytic anemia, and TIMMY likely prerenal versus postrenal, ordered US renal. We will follow-up on cultures and narrow down antibiotics. I discussed with and supervised the clinical nursing intern physician involved in the care of this patient. I personally saw and examined the patient and discussed the assessment and plan with the entire medicine team, including my attending. I agree with the assessment and plan as documented above. Sukhwinder Knowles MD PGY3 Internal Medicine Attending Provider Attestation/Addendum I have seen and examined the patient. I was physically present for the monson portions of the services provided including history, physical exam, diagnosis, treatment plans and orders. I agree with assessment and plan of care as documented by residents. After examination of the patient and review of the clinical data I feel that this patient needs admission to the hospital for further treatment/evaluation. Even though this this note was carefully revised there may still be minor errors in business travel consultant due to voice recognition software. Santiago Daniels MD
--- NOTE | 2025-09-25 16:02 | XR_ITS ---
Examination: Retroperitoneal ultrasound, complete Technique: Multiple high resolution grayscale images of the retroperitoneum obtained, including kidneys and bladder. Exam date and time: September 25, [id number] hours INDICATIONS: Weakness vomiting 3 days, acute renal insufficiency on laboratory examination this week. FINDINGS: Right kidney 9.8 cm renal cortex 1.4 cm Left kidney 8.3 cm cortex 1.1 cm Mild right hydronephrosis Moderate renal scarring No bladder mass or bladder calculi, bladder prevoid volume 680 cc Prostate 4.3 x 3.4 x 5.3 cm no prostate nodule Bladder diverticulum 6.0 cm IMPRESSION: Mild right hydronephrosis Moderate bilateral renal parenchymal scar formation Benign bladder diverticulum Moderate prostatomegaly
[2025-09-25] MEDS: ONDANSETRON INJ 2 MG/ML INJ 2 ML 4 MG IVP (16:43)
[2025-09-25] MEDS: INSULIN LISPRO (AdmeLOG) 1 UNIT/0.01 ML UNIT SC (16:52)
[2025-09-25] MEDS: TAMSULOSIN HCL 0.4 MG CAPSULE PO (21:23)
[2025-09-25] MEDS: HEPARIN SOD INJ 5000 UNIT/ML VIAL SC (21:26)
[2025-09-25 23:24] LABS: Lactate (Lactic Acid) 1.6 mMol/L (0.4-2.0)
[2025-09-26] VITALS (12 sets, daily range): BP systolic 99–121; BP diastolic 49–73; PULSE 63–78; RESP 18–96; TEMP 36.2–38.5; O2SAT 92–95
[2025-09-26] MEDS: ACETAMINOPHEN 325 MG TABLET 650 MG PO (00:08)
[2025-09-26] MEDS: HEPARIN SOD INJ 5000 UNIT/ML VIAL SC ×3 (05:18→21:16)
[2025-09-26] MEDS: PREGABALIN 50 MG CAPSULE PO (05:18)
[2025-09-26 06:07] LABS: Basophils # (Auto) 0.0 Thou/mm3 (0.0-0.2); Basophils % (Auto) 0 % (0-2.5); Eosinophils # (Auto) 0.0 Thou/mm3 (0.0-0.5); Eosinophils % (Auto) 0 % (0-10); Hematocrit 34.4 % (41.0-53.0); Hemoglobin 11.6 g/dL (13.5-16.0); Immature Granulocytes Auto 0.06 Thou/mm3 (0.00-0.00); Lymphocytes # (Auto) 0.4 Thou/mm3 (1.0-4.8); Lymphocytes % (Auto) 4 % (10-50); Mean Corpuscular HGB Conc 33.7 g/dl (31.0-37.0); Mean Corpuscular Hemoglobin 29.6 pg (25.0-35.0); Mean Corpuscular Volume 88 fL (80-100); Monocytes # (Auto) 0.6 Thou/mm3 (0.0-0.8); Monocytes % (Auto) 6 % (0-12); Neutrophils # (Auto) 9.2 Thou/mm3 (1.8-7.7); Neutrophils % (Auto) 90 % (37-80); Nucleated Red Blood Cell # 0.00 Thou/mm3 (0.00-0.00); Nucleated Red Blood Cell % 0 /100 WBC (0); Platelet Count 169 Thou/mm3 (140-440); RDW Standard Deviation 42.7 fL (35.1-43.9); Red Blood Count 3.92 Miln/mm3 (4.50-5.90); White Blood Count 10.3 Thou/mm3 (3.8-10.6)
[2025-09-26 06:32] LABS: Alanine Aminotransferase 15 U/L (10-49); Albumin, Serum 3.5 gm/dL (3.4-4.8); Albumin/Globulin Ratio 1.8 (1.2-2.2); Alkaline Phosphatase 45 U/L (46-116); Anion Gap 11 (7-16); Aspartate Amino Transferase 20 U/L (0-34); BUN/Creatinine Ratio 15 Ratio (12-20); Bilirubin,Total 0.4 mg/dL (0.3-1.2); Blood Urea Nitrogen 26 mg/dL (9-23); Calcium 8.6 mg/dL (8.3-10.6); Calcium (Corrected) 9.0 mg/dL (8.5-10.1); Carbon Dioxide 24.6 mMol/L (20.0-31.0); Cardiac Risk Estimate 2.7 RATIO (4.0-6.7); Chloride 103 mMol/L (98-107); Cholesterol 67 mg/dL (132-200); Creatinine (Component) 1.7 mg/dL (0.6-1.3); Estimated Creatinine Clearance 43.0 mL/min (>60); Folate 5.78 ng/mL (>5.38); Globulin 2.0 gm/dL (2.3-3.5); Glucose 261 mg/dL (74-106); HDL Cholesterol 25 mg/dL (40-60); LDL Cholesterol,Calculated 22 mg/dL (0-130); Magnesium 2.1 mg/dL (1.6-2.6); Osmolality,Calculated 291 (275-295); Potassium 3.9 mMol/L (3.4-5.1); Sodium 139 mMol/L (136-145); Total Protein 5.5 gm/dL (5.7-8.2); Triglycerides 98 mg/dL (30-150); Vitamin B12 187 pg/mL (211-911); eGFR 41 See Note
[2025-09-26 06:52] LABS: Ferritin 194 ng/mL (10.5-307.3); Iron 7 mcg/dL (65-175); Percent Iron Saturation 3 % (20-55); Total Iron Binding Capacity 199 mcg/dL (250-425); Unsaturated Iron Binding 192 (225-295)
[2025-09-26] MEDS: INSULIN LISPRO (AdmeLOG) 1 UNIT/0.01 ML UNIT SC ×3 (07:45→17:54)
[2025-09-26 08:07] LABS: Glucose Estimated Average 166 mg/dL (80-131); Hemoglobin A1C 7.4 % Hgb (4.8-6.0)
[2025-09-26] MEDS: ASPIRIN EC 81 MG TABEC PO (08:41)
[2025-09-26] MEDS: PANTOPRAZOLE 40 MG TABLET PO (08:41)
[2025-09-26] MEDS: ATORVASTATIN CALCIUM 20 MG TABLET PO (08:41)
[2025-09-26] MEDS: FINASTERIDE 5 MG TABLET PO (08:45)
[2025-09-26] MEDS: INSULIN DEGLUDEC 5 UNIT/0.05 ML (PER 5 UNITS) 10 UNIT SC (08:45)
[2025-09-26] MEDS: cefTRIAXone 2 GM in SODIUM CHLORIDE 0.9% (Popper) 50 ML IV (08:53)
[2025-09-26 09:23] LABS: Path Review Blood Smear Sent to Pathologist
--- NOTE | 2025-09-26 10:28 | ESPR_ITS ---
<Statement entered by Leticia Meyer MD - 09/26/25 15:16> Patient was seen and examined by me personally. I have directly supervised and reviewed documentation by the team resident and agree with its findings with any exceptions or additional findings as below. Plan of care was discussed with the attending, Dr. Barba. Overnight, the patient had spiked a fever of 101.3 and received Tylenol with resolution of fever. He did not take his tamsulosin yesterday morning so received his dose last night. Today patient reports feeling better. Renal US today showed mild right hydronephrosis, moderate bilateral renal parenchymal scar formation, benign bladder diverticulum, and moderate prostatemegaly. Per at bedside today, son reported that he remembered based on past imaging that patient was told he had a bladder cyst, updated and patient on benign bladder diverticulum finding which was most likely what they were remembering. Creatinine remains at 1.7, patient likely with some level of CKD. WBC is trending down from 17.3 to 10.3. Blood cultures thus far are showing preliminary gram negative rods in 2/2 samples and will continue the patient on ceftriaxone 2 gm IV qday. Pending urine cultures as well. Patient was found to be retaining 602 ml urine on bladder scan today so Mace was placed. Will continue patient on finasteride and tamsulosin daily. Leticia Meyer, PGY-3 Documentation for date of: 09/26/25 Subjective Subjective Interval history: Overnight, patient had fever of 101.3 resolved with Tylenol. Patient was also noted to be retaining urine straight In-N-Out catheter done 1.15 L removed and tamsulosin given. Patient seen and examined at bedside in AM. Patient endorsed that last night he had strong urge to go but could not thus In and Out catheter done at 0400. At this time patient does not feel the urge to urinate but bladder scan ordered found to be retaining 600cc urine and Mace placed. VSS. Hemoglobin down trended from 12.6 now 11.6 likely 2/2 dilution, creatinine stable elevated 1.7, blood culture 2 out of 2 GNR, A1c 7.4, iron low 7, B12 low. Lactic acidosis resolved following fluids. Glucose control improved in 200s. Renal ultrasound showed mild right hydronephrosis, bilateral renal scarring likely CKD, urine electrolytes ordered. Continue ceftriaxone 2 g, defer iron tablets and patient, started B12 500 mcg p.o. PSA elevated 6.8, given history of prostatitis, possible prostatitis/inflammation vs malignancy. Exam Vital Signs Temp Pulse Resp BP Pulse Ox O2 Del Method 97.4 F 76 18 110/49 L 92 L Room Air 09/26/25 08:00 09/26/25 08:41 09/26/25 08:00 09/26/25 08:41 09/26/25 08:00 09/26/25 08:00 Narrative Exam GENERAL: AOx3, no acute distress HEENT: mucous membranes moist, bilateral sclera anicteric CARDIOVASCULAR: regular rate and rhythm, S1/S2 present, no murmurs appreciated PULMONARY: clear to auscultation bilaterally, no rales/rhonchi/wheezes ABDOMINAL: soft, non-tender, non-distended, no rebound/guarding, bowel sounds present, no CVA tenderness, no suprapubic tenderness EXTREMITIES: no peripheral edema SKIN: warm and dry, intact, no rashes NEURO: CN II-XII grossly intact, no focal deficits, alert, following commands Objective Labs 09/26/25 05:17 09/26/25 05:17 Labs: Laboratory Results - last 24 hr 09/25/25 09/25/25 09/25/25 08:55 09:39 12:40 WBC RBC Hgb Hct MCV MCH MCHC RDW Std Deviation Plt Count Neut % (Auto) Lymph % (Auto) Parke % (Auto) Eos % (Auto) Baso % (Auto) Neut # (Auto) Lymph # (Auto) [place]ke # (Auto) Eos # (Auto) Baso # (Auto) Immature Gran # (Auto) Absolute Nucleated RBC Immature Gran % Nucleated RBC % Smear Path Review Sodium Potassium Chloride Carbon Dioxide Anion Gap BUN Creatinine Estim Creat Clear Calc eGFR BUN/Creatinine Ratio Glucose Estimated Ave Glu mg/dL Hemoglobin A1c Calculated Osmolality Lactic Acid 2.6 H Calcium Corrected Calcium Magnesium 0.9 L* Iron TIBC Iron Saturation Unsat Iron Binding Ferritin Total Bilirubin AST ALT Alkaline Phosphatase Total Protein Albumin Globulin Albumin/Globulin Ratio Triglycerides Cholesterol LDL Cholesterol, Calc HDL Cholesterol Cholesterol/HDL Ratio Vitamin B12 Folate TSH 1.21 Free T4 1.17 09/25/25 09/26/25 23:10 05:17 WBC 10.3 D RBC 3.92 L Hgb 11.6 L Hct 34.4 L MCV 88 MCH 29.6 MCHC 33.7 RDW Std Deviation 42.7 Plt Count 169 D Neut % (Auto) 90 H Lymph % (Auto) 4 L Parke % (Auto) 6 Eos % (Auto) 0 Baso % (Auto) 0 Neut # (Auto) 9.2 H Lymph # (Auto) 0.4 L [place]ke # (Auto) 0.6 Eos # (Auto) 0.0 Baso # (Auto) 0.0 Immature Gran # (Auto) 0.06 H Absolute Nucleated RBC 0.00 Immature Gran % 1 H Nucleated RBC % 0 Smear Path Review Sent to Pathologist Sodium 139 Potassium 3.9 Chloride 103 Carbon Dioxide 24.6 Anion Gap 11 BUN 26 H Creatinine 1.7 H Estim Creat Clear Calc 43.0 L eGFR 41 L BUN/Creatinine Ratio 15 Glucose [address] Glu mg/dL 166 H Hemoglobin A1c 7.4 H Calculated Osmolality 291 Lactic Acid 1.6 Calcium 8.6 Corrected Calcium 9.0 Magnesium 2.1 Iron 7 L TIBC 199 L Iron Saturation 3 L Unsat Iron Binding 192 L Ferritin 194 Total Bilirubin 0.4 D AST 20 ALT 15 Alkaline Phosphatase 45 L Total Protein 5.5 L Albumin 3.5 D Globulin 2.0 L Albumin/Globulin Ratio 1.8 Triglycerides 98 Cholesterol 67 L LDL Cholesterol, Calc 22 HDL Cholesterol 25 L Cholesterol/HDL Ratio 2.7 L Vitamin B12 187 L Folate 5.78 TSH Free T4 ABG Interpretation ABG results: 09/25/25 09:06 VBG pH 7.44 VBG pCO2 36 VBG pO2 30 VBG Base Excess 1 Quality Measures Quality Measures none Advance care planning discussed with:: patient Assessment & Plan Assessment Current Active Medications: Generic Name Dose Route Start Last Admin Trade Name Freq PRN Reason Stop Dose Admin Acetaminophen 650 mg 09/25/25 11:50 09/26/25 00:08 Acetaminophen 325 Mg Tablet PO 10/25/25 11:49 650 mg Q6H PRN Administration Fever >100.4 or pain 1-3 Aspirin 81 mg 09/26/25 09:00 09/26/25 08:41 Aspirin Ec 81 Mg Tabec PO 10/26/25 08:59 81 mg QDAY YASMANI Administration Atorvastatin Calcium 20 mg 09/26/25 09:00 09/26/25 08:41 Atorvastatin Calcium 20 Mg Tablet PO 10/26/25 08:59 20 mg QDAY YASMANI Administration Carvedilol 12.5 mg 09/25/25 21:00 09/26/25 08:41 Carvedilol 12.5 Mg Tablet PO 10/25/25 20:59 12.5 mg BID YASMANI Administration Cyanocobalamin 500 mcg 09/26/25 09:00 09/26/25 08:53 Cyanocobalamin 500 Mcg Tablet PO 10/26/25 08:59 500 mcg QDAY YASMANI Administration Dextrose 25 ml 09/25/25 12:05 Dextrose 50%-Water Inj 50 Ml Syringe IV 10/25/25 12:04 Q15MIN PRN BG 50-70 responsive npo pt Dextrose 50 ml 09/25/25 12:05 Dextrose 50%-Water Inj 50 Ml Syringe IV 10/25/25 12:04 Q15MIN PRN BG <50 OR BG <70 & pt unresponsive Finasteride 5 mg 09/26/25 09:00 09/26/25 08:45 Finasteride 5 Mg Tablet PO 10/26/25 08:59 5 mg QDAY YASMANI Administration Glucagon 1 mg 09/25/25 12:05 Glucagon Inj 1 Mg Vial IM Q15MIN PRN BG <70, and no IV access Heparin Sodium (Porcine) 5,000 unit 09/25/25 14:00 09/26/25 05:18 Heparin Sod Inj 5000 Unit/Ml Vial SC 10/09/25 13:59 5,000 unit Q8HR YASMANI Administration Ceftriaxone Sodium 2 gm/ 50 mls @ 100 mls/hr 09/26/25 09:00 09/26/25 08:53 Sodium Chloride IV 10/03/25 08:59 100 mls/hr QDAY YASMANI Administration Insulin Degludec 10 unit 09/25/25 12:15 09/26/25 08:45 Insulin Degludec 5 Unit/0.05 Ml (Per 5 Units) SC 10/25/25 12:14 10 unit BID YASMANI Administration Insulin Human Lispro 0 unit 09/25/25 17:00 09/26/25 07:45 Insulin Lispro (Admelog) 1 Unit/0.01 Ml Unit SC 10/25/25 16:59 4 unit AC YASMANI Administration Protocol Ondansetron HCl 4 mg 09/25/25 11:50 09/25/25 16:43 Ondansetron Inj 2 Mg/Ml Inj 2 Ml IVP 10/25/25 11:49 4 mg Q6H PRN Administration NAUSEA OR VOMITING Protocol Pantoprazole Sodium 40 mg 09/26/25 09:00 09/26/25 08:41 Pantoprazole 40 Mg Tablet PO 10/26/25 08:59 40 mg QDAY YASMANI Administration Pregabalin 50 mg 09/26/25 08:23 Pregabalin 50 Mg Capsule PO 10/25/25 13:59 TID PRN extremity burning Sennosides 1 tab 09/25/25 11:50 Senna Tablet PO 10/25/25 11:49 QDAY PRN constipation Protocol Tamsulosin HCl 0.4 mg 09/27/25 09:00 Tamsulosin Hcl 0.4 Mg Capsule PO 10/27/25 08:59 QDAY YASMANI Plan Justin Corado 75M pmhx significant for HTN, IDDM2, and CAD s/p PCIx2 (2022) who presents with 1 day of dysuria, nausea, vomiting and diarrhea, admitted for L pyelonephritis. #L pyelonephritis #GNR bacteremia #Hx of BPH #Elevated lactic acid Admits to flank pain 2 days ago resolved on its own, unaware if he passed stone. No history of nephrolithiasis. Previously had frequent UTI in the past treated with cipro however not any for the past couple years. On admission WBC 17.3, procal 13.5, febrile, lactic acid 3.3->2.6 following sepsis bolus. UA hazy, 1+ protein, 4+ glucose, 1+ ketones, 2+ blood, positive nitrite and leukocyte esterase, 19 RBC, 143 WBC, 4+ bacteria. s/p Zosyn and doxycycline in ED. CTAP: Left perinephric stranding, mild left hydronephrosis, left hydro ureter, no ureteral calculi, normal appendix, benign bladder diverticulum BCx 2/2 growing GNR Plan: - Ceftriaxone 2g QD (09/25- - F/u UCx and BCx #Elevated PSA #Hx of BPH PSA on 09/26 6.8, unknown baseline. Patient endorses prior UTIs were from prostatitis. Ddx: prostatitis/inflammation, malignancy. Denies genital pain. Plan: - Patient made aware and instructed to follow up outpatient - Restarted home finasteride 5 mg QD and tamsulosin 0.4 mg QD #Hyperglycemia #IDDM2 Takes Lantus 14 in AM and 13 in PM. Has not taken for one day due to N/V. Glucose on admission 484 and BHB 0.8, VBG 7.44, so not DKA. Plan: - Degludac 10u BID and SSI step 3 #Iron deficiency anemia, microcytic #B12 deficiency Hgb on admission 12.6, no hx of anemia or recent bleed. Denies melena, hematochezia or hematemesis. Iron panel iron low 7, TIBC low 199, iron sat 3 L ferritin 194. B12 187 low. Folate wnl Plan: - F/u peripheral smear - Defer inpatient iron supplementation due to ongoing infection - Started PO B12 500 mcg daily #TIMMY #Likely CKD Cr on admission 1.7 with GFR 47, denies kidney disease and unknown baseline. Renal US shows right mild hydronephrosis, moderate bilateral renal parenchymal scar formation, benign bladder diverticulum, moderate prostatomegaly. Given renal scarring, likely chronic kidney disease. Plan: - Ulytes ordered - Outpatient follow up #CAD s/p PCIx2 (2022) #Hx of HTN, essential Takes ASA 81 mg QD, atorvastatin 20 mg hs, carvedilol 12.5 mg BID, lisinopril 10 mg daily, Plan: - Resumed home ASA 81 mg QD, atorvastatin 20 mg hs, carvedilol 12.5 mg BID - Consider restarting home lisinopril 10 mg QD if blood pressure remains elevated #Hypomagnesemia, resolved Ddx: N/V, poor PO intake. Repleted with 2g in ED and another 4 after Plan: - CTM and replete as needed Hospital management: Lines: PIV Diet: carb consistent low Bowel: senna prn GI prophylaxis: not indicated DVT prophylaxis: heparin 5000u q8 Disposition: med tele, IV abx CODE STATUS: FULL CODE Plan of care discussed with attending Dr. Barba, and PGY-3 Dr. Meyer. Theresa Espinosa DO PGY-1 Internal Medicine Attending Provider Attestation/Addendum I have discussed and was present for the essential components of the history, physical examination, diagnosis, and treatment plan with the resident. I agree with the patient's care as documented by the resident and amended herein by me. Rudy Barba DO. Although this document has been carefully reviewed, there may still be some phonetic and other typographical errors. These errors are purely grammatical due to imperfections in the software program and should not be construed in any way to compromise the substance of the patient's medical care during this visit.
--- NOTE | 2025-09-26 10:29 | PC.SS ---
Follow up note: Pending cultures. On IV antibiotic.
[2025-09-26 12:07] LABS: Prostate Specific Antigen 6.80 ng/mL (0-4.00)
[2025-09-26] MEDS: TAMSULOSIN HCL 0.4 MG CAPSULE PO (12:09)
--- NOTE | 2025-09-26 12:48 | PC.SS ---
SS met with patient and regarding his d/c plan. Pt is alert/oriented. Pt was admitted for Pyelonphritis. Pt confirmed demographic and contact information is correct on facesheet. Pt resides with . Pt ambulates independently without assistance or DME. Pt is ok with all ADLs. Patient?s pharmacy of choice is [facility] . Pt named his son, Jaylan Corado or Rudy Corado, son, phone# [phone] medical decision makers if he is unable. SS provided verbal d/c options for home or SNF. Patient?s choice is to return home upon d/c. Pt states he is diabetic, has glucometer, and test strips. Pt states he utilizes insulin injections for his diabetes. Pt states he is not on dialysis. states pt follows up with PCP every 6 months and last appointment was 4 months ago. D/C plan: Return home Next of Kin: Jaylan Corado, son, phone# [phone] or Rudy Corado, son, phone# [phone] PCP: Dr. Ramirez from [facility] in [place] Address: Correct on facesheet
--- NOTE | 2025-09-26 17:03 | PC.NURSE ---
Called Dr. Espinosa and made aware that patient's blood sugar has been increasing throughout the day. Last sugar was 333. Will give insulin per sliding scale.
[2025-09-26] MEDS: INSULIN DEGLUDEC 5 UNIT/0.05 ML (PER 5 UNITS) 13 UNIT SC (20:32)
[2025-09-26 22:13] LABS: Creatinine,Random Urine 104 mg/dL (30-125); Protein Total, Random Urine 145 mg/dL (1-14); Sodium,Urine Random 20.0 mMol/L (20.0-110.0); Urea Nitrogen, Random Urine > 1000.0 mg/dL (350.0-1000.0)
[2025-09-27] VITALS (12 sets, daily range): BP systolic 109–129; BP diastolic 55–72; PULSE 59–74; RESP 18–99; TEMP 36.1–36.8; O2SAT 93–95
[2025-09-27] MEDS: HEPARIN SOD INJ 5000 UNIT/ML VIAL SC ×3 (05:34→22:03)
[2025-09-27 06:07] LABS: Basophils # (Auto) 0.0 Thou/mm3 (0.0-0.2); Basophils % (Auto) 0 % (0-2.5); Eosinophils # (Auto) 0.0 Thou/mm3 (0.0-0.5); Eosinophils % (Auto) 0 % (0-10); Hematocrit 30.1 % (41.0-53.0); Hemoglobin 9.9 g/dL (13.5-16.0); Immature Granulocytes Auto 0.02 Thou/mm3 (0.00-0.00); Lymphocytes # (Auto) 0.3 Thou/mm3 (1.0-4.8); Lymphocytes % (Auto) 6 % (10-50); Mean Corpuscular HGB Conc 32.9 g/dl (31.0-37.0); Mean Corpuscular Hemoglobin 29.0 pg (25.0-35.0); Mean Corpuscular Volume 88 fL (80-100); Monocytes # (Auto) 0.5 Thou/mm3 (0.0-0.8); Monocytes % (Auto) 10 % (0-12); Neutrophils # (Auto) 4.2 Thou/mm3 (1.8-7.7); Neutrophils % (Auto) 83 % (37-80); Nucleated Red Blood Cell # 0.00 Thou/mm3 (0.00-0.00); Nucleated Red Blood Cell % 0 /100 WBC (0); Platelet Count 138 Thou/mm3 (140-440); RDW Standard Deviation 42.9 fL (35.1-43.9); Red Blood Count 3.41 Miln/mm3 (4.50-5.90); White Blood Count 5.1 Thou/mm3 (3.8-10.6)
[2025-09-27 06:27] LABS: Alanine Aminotransferase 39 U/L (10-49); Albumin, Serum 3.1 gm/dL (3.4-4.8); Albumin/Globulin Ratio 1.6 (1.2-2.2); Alkaline Phosphatase 42 U/L (46-116); Anion Gap 7 (7-16); Aspartate Amino Transferase 35 U/L (0-34); BUN/Creatinine Ratio 17 Ratio (12-20); Bilirubin,Total 0.3 mg/dL (0.3-1.2); Blood Urea Nitrogen 26 mg/dL (9-23); Calcium 8.6 mg/dL (8.3-10.6); Calcium (Corrected) 9.3 mg/dL (8.5-10.1); Carbon Dioxide 25.7 mMol/L (20.0-31.0); Chloride 104 mMol/L (98-107); Creatinine (Component) 1.5 mg/dL (0.6-1.3); Estimated Creatinine Clearance 48.7 mL/min (>60); Globulin 2.0 gm/dL (2.3-3.5); Glucose 179 mg/dL (74-106); Magnesium 2.1 mg/dL (1.6-2.6); Osmolality,Calculated 282 (275-295); Phosphorous 2.6 mg/dL (2.4-5.1); Potassium 3.8 mMol/L (3.4-5.1); Sodium 137 mMol/L (136-145); Total Protein 5.1 gm/dL (5.7-8.2); eGFR 48 See Note
[2025-09-27] MEDS: cefTRIAXone 2 GM in SODIUM CHLORIDE 0.9% (Popper) 50 ML IV (08:40)
[2025-09-27] MEDS: PANTOPRAZOLE 40 MG TABLET PO (08:40)
[2025-09-27] MEDS: ASPIRIN EC 81 MG TABEC PO (08:41)
[2025-09-27] MEDS: FINASTERIDE 5 MG TABLET PO (08:41)
[2025-09-27] MEDS: TAMSULOSIN HCL 0.4 MG CAPSULE PO (08:41)
[2025-09-27] MEDS: INSULIN DEGLUDEC 5 UNIT/0.05 ML (PER 5 UNITS) 14 UNIT SC (08:41)
[2025-09-27] MEDS: ATORVASTATIN CALCIUM 20 MG TABLET PO (08:41)
--- NOTE | 2025-09-27 12:08 | ESPR_ITS ---
<Statement entered by Leticia Meyer MD - 09/27/25 17:54> Patient was seen and examined by me personally. I have directly supervised and reviewed documentation by the team resident and agree with its findings with any exceptions or additional findings as below. Plan of care was discussed with the attending, Dr. Saravia. Patient seen at bedside, reports feeling better. No new fevers overnight. WBC downtrended from 10.3 to 5.1. Blood culture and urine culture results showed preliminary enterobacter aerogenes, resistant to only ampicillin, ampicillin/sulbactam, and cefazolin thus far and sensitive to ceftriaxone which the patient has been treated with. Will plan to keep the patient one more day to continue IV antibiotics, await finalization of cultures, and plan to discharge the patient on 2-week regimen to treat bacteremia. Patient had retention of urine yesterday thus has Mace placed, today had bladder training which patient passed successfully and will plan to remove the Mace tonight. Leticia Meyer, PGY-3 Documentation for date of: 09/27/25 Subjective Subjective Interval history: No acute overnight events. Patient seen and examined at bedside. No complaints. Denies flank pain, groin pain or fever/chills or nausea/vomiting. VSS, afebrile overnight. WBC, hemoglobin and platelets all downtrended likely due to 2.1 L oral intake. BCx and UCx pending. Initiate bladder training for anticipation of discharge over the next 24 to 48 hours following culture results. Exam Vital Signs Temp Pulse Resp BP Pulse Ox O2 Del Method 97.5 F 60 20 109/71 95 Room Air 09/27/25 11:41 09/27/25 11:41 09/27/25 11:41 09/27/25 11:41 09/27/25 11:41 09/27/25 11:41 Narrative Exam GENERAL: AOx3, no acute distress HEENT: mucous membranes moist, bilateral sclera anicteric CARDIOVASCULAR: regular rate and rhythm, S1/S2 present, no murmurs appreciated PULMONARY: clear to auscultation bilaterally, no rales/rhonchi/wheezes ABDOMINAL: soft, non-tender, non-distended, no rebound/guarding, bowel sounds present, no CVA tenderness, no suprapubic tenderness EXTREMITIES: no peripheral edema SKIN: warm and dry, intact, no rashes NEURO: CN II-XII grossly intact, no focal deficits, alert, following commands Objective Labs 09/28/25 05:20 09/28/25 05:20 Labs: Laboratory Results - last 24 hr 09/26/25 09/27/25 21:20 05:16 WBC 5.1 D RBC 3.41 L Hgb 9.9 L Hct 30.1 L MCV 88 MCH 29.0 MCHC 32.9 RDW Std Deviation 42.9 Plt Count 138 L D Neut % (Auto) 83 H Lymph % (Auto) 6 L [place] % (Auto) 10 Eos % (Auto) 0 Baso % (Auto) 0 Neut # (Auto) 4.2 Lymph # (Auto) 0.3 L [place] # (Auto) 0.5 Eos # (Auto) 0.0 Baso # (Auto) 0.0 Immature Gran # (Auto) 0.02 H Absolute Nucleated RBC 0.00 Immature Gran % 0 Nucleated RBC % 0 Sodium 137 Potassium 3.8 Chloride 104 Carbon Dioxide 25.7 Anion Gap 7 BUN 26 H Creatinine 1.5 H Estim Creat Clear Calc 48.7 L eGFR 48 L BUN/Creatinine Ratio 17 Glucose 179 H D Calculated Osmolality 282 Calcium 8.6 Corrected Calcium 9.3 Phosphorus 2.6 Magnesium 2.1 Total Bilirubin 0.3 AST 35 H ALT 39 Alkaline Phosphatase 42 L Total Protein 5.1 L Albumin 3.1 L Globulin 2.0 L Albumin/Globulin Ratio 1.6 Ur Random Creatinine 104 U Random Total Protein 145 H Ur Random Sodium 20.0 Ur Random Urea Nitrogn > 1000.0 H ABG Interpretation ABG results: 09/25/25 09:06 VBG pH 7.44 VBG pCO2 36 VBG pO2 30 VBG Base Excess 1 Quality Measures Quality Measures none Advance care planning discussed with:: patient Assessment & Plan Assessment Current Active Medications: Generic Name Dose Route Start Last Admin Trade Name Freq PRN Reason Stop Dose Admin Acetaminophen 650 mg 09/25/25 11:50 09/26/25 00:08 Acetaminophen 325 Mg Tablet PO 10/25/25 11:49 650 mg Q6H PRN Administration Fever >100.4 or pain 1-3 Aspirin 81 mg 09/26/25 09:00 09/27/25 08:41 Aspirin Ec 81 Mg Tabec PO 10/26/25 08:59 81 mg QDAY YASMANI Administration Atorvastatin Calcium 20 mg 09/26/25 09:00 09/27/25 08:41 Atorvastatin Calcium 20 Mg Tablet PO 10/26/25 08:59 20 mg QDAY YASMANI Administration Carvedilol 12.5 mg 09/25/25 21:00 09/27/25 08:40 Carvedilol 12.5 Mg Tablet PO 10/25/25 20:59 12.5 mg BID YASMANI Administration Cyanocobalamin 500 mcg 09/26/25 09:00 09/27/25 08:40 Cyanocobalamin 500 Mcg Tablet PO 10/26/25 08:59 500 mcg QDAY YASMANI Administration Dextrose 25 ml 09/25/25 12:05 Dextrose 50%-Water Inj 50 Ml Syringe IV 10/25/25 12:04 Q15MIN PRN BG 50-70 responsive npo pt Dextrose 50 ml 09/25/25 12:05 Dextrose 50%-Water Inj 50 Ml Syringe IV 10/25/25 12:04 Q15MIN PRN BG <50 OR BG <70 & pt unresponsive Finasteride 5 mg 09/26/25 09:00 09/27/25 08:41 Finasteride 5 Mg Tablet PO 10/26/25 08:59 5 mg QDAY YASAMNI Administration Glucagon 1 mg 09/25/25 12:05 Glucagon Inj 1 Mg Vial IM Q15MIN PRN BG <70, and no IV access Heparin Sodium (Porcine) 5,000 unit 09/25/25 14:00 09/27/25 05:34 Heparin Sod Inj 5000 Unit/Ml Vial SC 10/09/25 13:59 5,000 unit Q8HR YASMANI Administration Ceftriaxone Sodium 2 gm/ 50 mls @ 100 mls/hr 09/26/25 09:00 09/27/25 08:40 Sodium Chloride IV 10/03/25 08:59 100 mls/hr QDAY YASMANI Administration Insulin Degludec 13 unit 09/26/25 21:00 09/26/25 20:32 Insulin Degludec 5 Unit/0.05 Ml (Per 5 Units) SC 10/26/25 20:59 13 unit HS YASMANI Administration Insulin Degludec 14 unit 09/27/25 09:00 09/27/25 08:41 Insulin Degludec 5 Unit/0.05 Ml (Per 5 Units) SC 10/27/25 08:59 14 unit QDAY YASMANI Administration Insulin Human Lispro 0 unit 09/25/25 17:00 09/27/25 07:44 Insulin Lispro (Admelog) 1 Unit/0.01 Ml Unit SC 10/25/25 16:59 Not Given AC [facility] Protocol Ondansetron HCl 4 mg 09/25/25 11:50 09/25/25 16:43 Ondansetron Inj 2 Mg/Ml Inj 2 Ml IVP 10/25/25 11:49 4 mg Q6H PRN Administration NAUSEA OR VOMITING Protocol Pantoprazole Sodium 40 mg 09/26/25 09:00 09/27/25 08:40 Pantoprazole 40 Mg Tablet PO 10/26/25 08:59 40 mg QDAY YASMANI Administration Pregabalin 50 mg 09/26/25 08:23 Pregabalin 50 Mg Capsule PO 10/25/25 13:59 TID PRN extremity burning Sennosides 1 tab 09/25/25 11:50 Senna Tablet PO 10/25/25 11:49 QDAY PRN constipation Protocol Tamsulosin HCl 0.4 mg 09/27/25 09:00 09/27/25 08:41 Tamsulosin Hcl 0.4 Mg Capsule PO 10/27/25 08:59 0.4 mg QDAY YASMANI Administration Plan Justin Corado 75M pmhx significant for HTN, IDDM2, and CAD s/p PCIx2 (2022) who presents with 1 day of dysuria, nausea, vomiting and diarrhea, admitted for L pyelonephritis. #L pyelonephritis #GNR bacteremia #Elevated lactic acid, resolved Admits to flank pain 2 days ago resolved on its own, unaware if he passed stone. No history of nephrolithiasis. Previously had frequent UTI in the past treated with cipro however not any for the past couple years. On admission WBC 17.3, procal 13.5, febrile, lactic acid 3.3->2.6 following sepsis bolus. UA hazy, 1+ protein, 4+ glucose, 1+ ketones, 2+ blood, positive nitrite and leukocyte esterase, 19 RBC, 143 WBC, 4+ bacteria. s/p Zosyn and doxycycline in ED. CTAP: Left perinephric stranding, mild left hydronephrosis, left hydro ureter, no ureteral calculi, normal appendix, benign bladder diverticulum BCx 2/2 growing GNR Plan: - Ceftriaxone 2g QD (09/25- - F/u UCx and BCx #Urinary retention #Elevated PSA #Hx of BPH Overnight on first day of admission, patient noted to be retaining, straight cath removed 1.15L. Patient found to be retaining on 09/26 and Mace inserted. PSA on 09/26 6.8, unknown baseline. Patient endorses prior UTIs were from prostatitis. Ddx: prostatitis/inflammation, malignancy. Denies genital pain. Plan: - Bladder training today, if patient fails, plan to instruct patient how to in and out cath - Will need close urology outpatient follow up - Patient made aware regarding PSA and instructed to follow up outpatient - Restarted home finasteride 5 mg QD and tamsulosin 0.4 mg QD #Hyperglycemia #IDDM2 Takes Lantus 14 in AM and 13 in PM. Has not taken for one day due to N/V. Glucose on admission 484 and BHB 0.8, VBG 7.44, so not DKA. Plan: - Degludac 10u BID and SSI step 3 #Iron deficiency anemia, microcytic #B12 deficiency Hgb on admission 12.6, no hx of anemia or recent bleed. Denies melena, hematochezia or hematemesis. Iron panel iron low 7, TIBC low 199, iron sat 3 L ferritin 194. B12 187 low. Folate wnl Plan: - F/u peripheral smear - Defer inpatient iron supplementation due to ongoing infection - Started PO B12 500 mcg daily #TIMMY #Likely CKD Cr on admission 1.7 with GFR 47, denies kidney disease and unknown baseline. Renal US shows right mild hydronephrosis, moderate bilateral renal parenchymal scar formation, benign bladder diverticulum, moderate prostatomegaly. Given renal scarring, likely chronic kidney disease. Plan: - Ulytes ordered - Outpatient follow up #CAD s/p PCIx2 (2022) #Hx of HTN, essential Takes ASA 81 mg QD, atorvastatin 20 mg hs, carvedilol 12.5 mg BID, lisinopril 10 mg daily, Plan: - Resumed home ASA 81 mg QD, atorvastatin 20 mg hs, carvedilol 12.5 mg BID - Consider restarting home lisinopril 10 mg QD if blood pressure remains elevated #Hypomagnesemia, resolved Ddx: N/V, poor PO intake. Repleted with 2g in ED and another 4 after Plan: - CTM and replete as needed Hospital management: Lines: PIV Diet: carb consistent low Bowel: senna prn GI prophylaxis: not indicated DVT prophylaxis: heparin 5000u q8 Disposition: med tele, IV abx, bladder training CODE STATUS: FULL CODE Plan of care discussed with attending Dr. Saravia, and PGY-3 Dr. Meyer. Theresa sEpinosa DO PGY-1 Internal Medicine Attending Provider Attestation/Addendum Yanira Mendez DO, attest that I was physically present for the monson portions of the service and evaluated the patient with the resident and I reviewed and discussed the case with the resident and agree with the resident's findings and plans of care as documented above Patient seen and eval this a.m. Patient states that he is feeling a lot better at this time. He denies any abdominal pain. Patient endorses having increased difficulty urinating in the past few weeks. He states that he does have a urologist outpatient that he follows up in [place]. Discussed with the patient the concern for urinary retention due to prostatomegaly as a cause for his UTI. Patient currently undergoing bladder training and Mace removal. If patient does retain, may need straight catheterization. Explained to patient that that may be the best option for him if he is unable to void completely. Patient and verbalized understanding. Will order home health upon discharge. Patient also noted to be very weak and will need PT at home as well. Anticipate discharge in the next 24 hours pending final cultures and sensitivities of urine.
[2025-09-27] MEDS: INSULIN LISPRO (AdmeLOG) 1 UNIT/0.01 ML UNIT SC ×2 (12:33→18:06)
[2025-09-27] MEDS: INSULIN DEGLUDEC 5 UNIT/0.05 ML (PER 5 UNITS) 13 UNIT SC (20:06)
[2025-09-28] VITALS: BP 116/51; PULSE 58; PULSE 66; RESP 19; TEMP 36.3; O2SAT 95
[2025-09-28 04:00] VITALS: BP 138/76; PULSE 72; PULSE 74; RESP 19; TEMP 36.9; O2SAT 96
[2025-09-28] MEDS: HEPARIN SOD INJ 5000 UNIT/ML VIAL SC (05:56)
[2025-09-28 05:58] LABS: Basophils # (Auto) 0.0 Thou/mm3 (0.0-0.2); Basophils % (Auto) 0 % (0-2.5); Eosinophils # (Auto) 0.0 Thou/mm3 (0.0-0.5); Eosinophils % (Auto) 1 % (0-10); Hematocrit 31.0 % (41.0-53.0); Hemoglobin 10.6 g/dL (13.5-16.0); Immature Granulocytes Auto 0.02 Thou/mm3 (0.00-0.00); Lymphocytes # (Auto) 0.3 Thou/mm3 (1.0-4.8); Lymphocytes % (Auto) 8 % (10-50); Mean Corpuscular HGB Conc 34.2 g/dl (31.0-37.0); Mean Corpuscular Hemoglobin 29.6 pg (25.0-35.0); Mean Corpuscular Volume 87 fL (80-100); Monocytes # (Auto) 0.5 Thou/mm3 (0.0-0.8); Monocytes % (Auto) 12 % (0-12); Neutrophils # (Auto) 3.1 Thou/mm3 (1.8-7.7); Neutrophils % (Auto) 78 % (37-80); Nucleated Red Blood Cell # 0.00 Thou/mm3 (0.00-0.00); Nucleated Red Blood Cell % 0 /100 WBC (0); Platelet Count 128 Thou/mm3 (140-440); RDW Standard Deviation 41.2 fL (35.1-43.9); Red Blood Count 3.58 Miln/mm3 (4.50-5.90); White Blood Count 4.0 Thou/mm3 (3.8-10.6)
[2025-09-28 06:25] LABS: Alanine Aminotransferase 65 U/L (10-49); Albumin, Serum 3.1 gm/dL (3.4-4.8); Albumin/Globulin Ratio 1.5 (1.2-2.2); Alkaline Phosphatase 46 U/L (46-116); Anion Gap 9 (7-16); Aspartate Amino Transferase 40 U/L (0-34); BUN/Creatinine Ratio 17 Ratio (12-20); Bilirubin,Total 0.4 mg/dL (0.3-1.2); Blood Urea Nitrogen 22 mg/dL (9-23); Calcium 9.2 mg/dL (8.3-10.6); Calcium (Corrected) 9.9 mg/dL (8.5-10.1); Carbon Dioxide 25.5 mMol/L (20.0-31.0); Chloride 103 mMol/L (98-107); Creatinine (Component) 1.3 mg/dL (0.6-1.3); Estimated Creatinine Clearance 56.2 mL/min (>60); Globulin 2.1 gm/dL (2.3-3.5); Glucose 152 mg/dL (74-106); Magnesium 1.8 mg/dL (1.6-2.6); Osmolality,Calculated 280 (275-295); Phosphorous 1.9 mg/dL (2.4-5.1); Potassium 3.7 mMol/L (3.4-5.1); Sodium 137 mMol/L (136-145); Total Protein 5.2 gm/dL (5.7-8.2); eGFR 57 See Note
[2025-09-28 08:00] VITALS: BP 132/66; PULSE 62; RESP 19; TEMP 36.2; O2SAT 98
[2025-09-28 08:12] VITALS: BP 138/76; PULSE 72
[2025-09-28] MEDS: TAMSULOSIN HCL 0.4 MG CAPSULE 0.8 MG PO (08:12)
[2025-09-28] MEDS: PANTOPRAZOLE 40 MG TABLET PO (08:12)
[2025-09-28] MEDS: ASPIRIN EC 81 MG TABEC PO (08:12)
[2025-09-28] MEDS: FINASTERIDE 5 MG TABLET PO (08:12)
[2025-09-28] MEDS: ATORVASTATIN CALCIUM 20 MG TABLET PO (08:13)
[2025-09-28] MEDS: cefTRIAXone 2 GM in SODIUM CHLORIDE 0.9% (Popper) 50 ML IV (08:14)
[2025-09-28] MEDS: INSULIN DEGLUDEC 5 UNIT/0.05 ML (PER 5 UNITS) 14 UNIT SC (08:14)
--- NOTE | 2025-09-28 09:00 | PC.SS ---
Follow up note: On IV antibiotic. Pt is d/c for today. Pt will return home upon dc.
--- NOTE | 2025-09-28 09:50 | PC.SS ---
Walkers The diagnosis creates mobility limitation that significantly impairs ability to participate in the patients activities of daily living either in their entirety, or in a reasonable time frame. Also the patient is able to safely use the walker and the patient?s mobility is sufficiently resolved with the use of the walker and cane has been ruled out.
--- NOTE | 2025-09-28 09:55 | PC.SS ---
SS met with pt to provided him with choices for Home Health Services. Pt does not have preference. Pt followed up with PCP, Dr. Ashley albert [facility] in [place] in July and next appointment is October. Per pt, he follows up with PCP every 3 months. PT is recommending a walker. SS provided pt with [facility] [employer] with list Service and DME companies. Pt is requesting to utilize [facility] due to being local. SS has sent DME order to [facility] using [facility] [place].
[2025-09-28 10:21] VITALS: PULSE 61
--- NOTE | 2025-09-28 10:49 | ESDS_ITS ---
<Statement entered by Yanira Saravia DO - 09/28/25 15:47> I, Yanira Saravia DO, attest that I was physically present for the monson portions of the service and evaluated the patient with the resident and I reviewed and discussed the case with the resident and agree with the resident's findings and plans of care as documented above <Statement entered by Leticia Meyer MD - 09/28/25 15:41> Patient was seen and examined by me personally. I have reviewed the below documentation by the team resident and agree with its findings with any exceptions as below. Discharge plan was discussed with the attending, Dr. Saravia. Leticia Meyer, PGY-3 Planned Discharge Date 09/28/25 DS: Providers Provider Date of admission: 09/25/25 11:44 Primary care physician: Physician Ana Primary/Family Admitting Provider: Santiago Dnaiels MD Attending Provider on Admission: Maury Barba DO Consults: 09/27/25 14:34 Referral Physical Therapy Routine Comment: Physician Instructions: Attending Provider on DC: Yanira Saravia DO Discharging Provider: Yanira Saravia DO DS: Diagnosis Problem List Completed Was Problem List Reviewed/Reconciled?: Yes Hospital Course Hospital Course Hospital course: Summary: Justin Corado 75M pmhx significant for HTN, IDDM2, and CAD s/p PCIx2 (2022) who presents with 1 day of dysuria, nausea, vomiting and diarrhea, admitted for Enterobacter aerogenes UTI and Enterobacter aerogenes bacteremia. Patient reports to flank pain 2 days prior to admission resolved on its own, unaware if he passed stone. Previously had frequent UTI and prostatitis in the past treated with cipro however no infection for the past couple years. On admission WBC 17.3, procal 13.5, febrile, lactic acid 3.3->2.6 following sepsis bolus. Patient was treated with antibiotics and urine culture and blood culture grew organism as above. Furthermore on first day of admission patient noted to be retaining urine was straight cathed and remove 1.15 L, found again to be retaining next day and Mace inserted. Patient passed bladder training with urge still intact and was able to urinate some, however still found to be retaining. Patient was instructed to straight catheterize in and out however patient declined and opts to follow-up closely with outpatient urologist in [place]. Of note on admission, glucose noted to be 484 with ABG within normal limits and glucose closely monitored and successfully lowered with insulin. Furthermore, patient was admitted with TIMMY likely on CKD as renal ultrasound does show moderate bilateral renal scarring. Patient was also noted to be anemic on admission iron panel showed iron deficiency anemia; B12 also found to be low repleted. On discharge, patient is hemodynamically stable, labs and vitals reviewed to be stable and patient is ready to be discharged home. Imaging: CTAP: Left perinephric stranding, mild left hydronephrosis, left hydro ureter, no ureteral calculi, normal appendix, benign bladder diverticulum Renal US shows right mild hydronephrosis, moderate bilateral renal parenchymal scar formation, benign bladder diverticulum, moderate prostatomegaly. Discharge Recommendations: - Please take all medications as prescribed - INCREASED tamsulosin to 0.8 mg daily from 0.4 mg - START cefuroxime for your blood stream and urinary infection for 10 more days - Continue all home medications except as above - Please follow up with your PCP within one week of discharge - Please follow up with your urology due to your urinary retention - If your symptoms worsen, please seek immediate medical attention and return to your nearest emergency room. - If you do not have a PCP, you may follow up at the [facility] at [address] [place] [address] [address], [facility] [id number], Hospital Diagnoses: #Enterobacter aerogenes L pyelonephritis #Enterobacter aerogenes bacteremia #Elevated lactic acid, resolved #Urinary retention #Elevated PSA #Hx of BPH #Hyperglycemia #IDDM2 #Iron deficiency anemia, microcytic #B12 deficiency #TIMMY, improved #Likely CKD #CAD s/p PCIx2 (2022) #Hx of HTN, essential #Hypomagnesemia, resolved Plan of care discussed with attending Dr. Saravia, and PGY-3 Dr. Meyer. Theresa Espinosa, DO Internal Medicine, PGY-1 Time Spent with Patient Time attestation: Total time spent providing and/or coordinating discharge services: Time spent: Greater than 30 minutes Exam Vital Signs Temp Pulse Resp BP Pulse Ox O2 Del Method 97.2 F 61 19 138/76 H 98 Room Air 09/28/25 08:00 09/28/25 10:21 09/28/25 08:00 09/28/25 08:12 09/28/25 08:00 09/28/25 08:00 Narrative Exam GENERAL: AOx3, no acute distress HEENT: mucous membranes moist, bilateral sclera anicteric CARDIOVASCULAR: regular rate and rhythm, S1/S2 present, no murmurs appreciated PULMONARY: clear to auscultation bilaterally, no rales/rhonchi/wheezes ABDOMINAL: soft, non-tender, non-distended, no rebound/guarding, bowel sounds present, no CVA tenderness, no suprapubic tenderness EXTREMITIES: no peripheral edema SKIN: warm and dry, intact, no rashes NEURO: CN II-XII grossly intact, no focal deficits, alert, following commands Discharge Plan Plan Patient Disposition: HOME (Self Care) Patient condition on transfer: Stable Care Plan Goals: Reason for hospitalization: Pyelonephritis (Kidney Infection) Discharge Recommendations: -Follow up with PCP within 1 week of discharge -Please follow up your Urologist -Increase dose of Tamsulosin 0.8 mg oral once daily, please continue to monitor blood pressure. -Please compete 10 more day of antibiotics for your blood stream infection and phyelonephritis. -Continue rest of medications as previously prescribed -Return to the ED or call EMS if symptoms return and/or worsen. Prescriptions/Referrals Prescriptions/Med Rec: New cefuroxime axetil 500 mg tablet 500 mg PO BID 10 Days Qty: 20 0RF Continued metformin 1,000 mg tablet 1,000 mg PO BID finasteride 5 mg tablet 5 mg PO QDAY lisinopril 2.5 mg tablet 10 mg PO QDAY atorvastatin 20 mg tablet 20 mg PO QDAY aspirin [Adult Aspirin Regimen] 81 mg tablet,delayed release (DR/EC) 81 mg PO QDAY nitroglycerin 0.4 mg tablet, sublingual 0.4 mg sublingual Q5M PRN (Reason: chest pain) Rx Instructions: do not exceed 3 doses per episode insulin glargine [Lantus Solostar U-100 Insulin] 100 unit/mL (3 mL) insulin pen 20 unit subcut BID insulin lispro [Humalog KwikPen Insulin] 100 unit/mL insulin pen 3 unit subcut TID pregabalin [Lyrica] 50 mg capsule 50 mg PO TID carvedilol 12.5 mg tablet 12.5 mg PO BID Rx Instructions: must administer with a meal/food Changed tamsulosin 0.4 mg capsule 0.8 mg PO QDAY 30 Days Qty: 60 0RF Referrals: No Primary/Family,Physician [Primary Care Provider] Patient/Caregiver Discharge Instructions Education Materials: Anatomy of the Male Urinary Tract Print Language: Indian Stand Alone Forms: [employer] Award Info., Patient Portal Info Letter Discharge Order Discharge Orders: Discharge (Routine); Ordered 09/28/25 Ordered By: Mayi English Quality Discharge Quality Measures VTE prophylaxis
[2025-09-28] MEDS: NAPH,KPH MBDB 1 PACKET (1.5 GM) PO (11:37)
--- NOTE | 2025-09-28 12:06 | PC.NURSE ---
I let pt and know that Dr. English wants me to catheterize pt (in & out), show them how to do it and then home health will follow up with them, but pt is refusing to be catheterized at this time, he did just use the urinal and urinated 400 mL compared to about 200 mL earlier, I educated them re: emptying the bladder so urine is not left sitting in the bladder growing bacteria, they understand
== END 2025-09-28 12:05 | disposition home or self-care (01) | DRG 690 ==
LOC: SERX 11:38 → SERHOLD 12:52 → S3SX 16:20
PROVIDERS: Admitting Provider Student in an Organized Health Care Education/Training Program; Emergency Provider Emergency Medicine; Visit Provider Student in an Organized Health Care Education/Training Program
DX: N13.6 Pyonephrosis (principal); E87.20 Acidosis, unspecified; N18.9 Chronic kidney disease, unspecified; I12.9 Hypertensive chronic kidney disease with stage 1 through stage 4 chronic kidney disease, or unspecified chronic kidney disease; I25.10 Atherosclerotic heart disease of native coronary artery without angina pectoris; N32.3 Diverticulum of bladder; E11.22 Type 2 diabetes mellitus with diabetic chronic kidney disease; E11.65 Type 2 diabetes mellitus with hyperglycemia; N12 Tubulo-interstitial nephritis, not specified as acute or chronic; N17.9 Acute kidney failure, unspecified; E83.42 Hypomagnesemia; Z87.440 Personal history of urinary (tract) infections; D50.9 Iron deficiency anemia, unspecified; S09.90XA Unspecified injury of head, initial encounter; N40.0 Benign prostatic hyperplasia without lower urinary tract symptoms; Z88.5 Allergy status to narcotic agent; Z79.4 Long term (current) use of insulin; Z79.82 Long term (current) use of aspirin; Z79.84 Long term (current) use of oral hypoglycemic drugs; Z79.899 Other long term (current) drug therapy; Z98.61 Coronary angioplasty status; Z85.828 Personal history of other malignant neoplasm of skin; W06.XXXA Fall from bed, initial encounter
CPT/HCPCS: 36415; 71045; 74176; 76770; 80053; 80061; 81001; 82010; 82570; 82607; 82728; 82746; 82803; 83036; 83540; 83550; 83605; 83615; 83690; 83735; 83880; 84100; 84145; 84153; 84156; 84300; 84439; 84443; 84484; 84540; 85025; 85610; 85730; 87040; 87077; 87086; 87186; 87502; 87635; 93005; 93225; 96365; 97162; 99284; J0131; J0696; J1644; J1815; J2405; J2470; J2543; J3475; J3490; J7030; J7050; A9270